=== PATIENT | male | born 1995 | race African-American/Black ===

== ENCOUNTER 2023-12-24 09:42 | Emergency (ER) | payer MEDICAID ==
[~2023-12-24] VITALS: Ht 180.3 cm; Wt 79.0 kg
[2023-12-24 09:44] VITALS: O2SAT 100
[2023-12-24 10:09] VITALS: BP 125/82; PULSE 66; RESP 17; TEMP 37.16964; O2SAT 100
[2023-12-24 10:21] LABS: BASOPHILS % 0.7 % (0.0-2.0); EOSINOPHILS % 1.3 % (0.0-5.0); HEMATOCRIT. 38.7 % (42.0-52.0); HEMOGLOBIN. 12.8 g/dL (14.0-18.0); LYMPHOCYTES % 24.4 % (20.0-50.0); MEAN CORPUSCULAR HEMOGLOBIN 29.7 pg (28.0-32.0); MEAN CORPUSCULAR HGB CONC 33.1 g/dL (31.0-37.0); MEAN CORPUSCULAR VOLUME 89.7 fL (80.0-94.0); MEAN PLATELET VOLUME 7.8 fl (7.4-10.4); MONOCYTES % 7.1 % (2.0-8.0); NEUTROPHILS % 66.5 % (40.0-76.0); PLATELET 279 x1000/uL (130-400); RED BLOOD CELL COUNT 4.31 mill/uL (4.7-6.1); RED CELL DISTRIBUTION WIDTH 14.6 % (11.6-14.6); WHITE BLOOD COUNT 5.6 x1000/uL (4.5-11.0)
[2023-12-24 10:33] LABS: CARBON DIOXIDE 29 mEq/L (21-32); CHLORIDE 106 mEq/L (98-107); POTASSIUM 3.8 mEq/L (3.5-5.1); SODIUM 141 mEq/L (136-145)
[2023-12-24 10:34] LABS: CALCIUM 9.1 mg/dL (8.7-10.4)
[2023-12-24 10:39] LABS: CREATININE 1.1 mg/dL (0.6-1.3); GLUCOSE 114 mg/dL (70-105); UREA NITROGEN BLOOD 13 mg/dL (9-23)
[2023-12-24 10:59] LABS: BETA HYDROXYBUTYRATE < 0.1 mMol/L (0.0-0.3); ETHANOL BLOOD < 10 mg/dL (<10); TROPONIN I HIGH SENSITIVITY < 4 ng/L (3.0-53)
[2023-12-24 11:09] LABS: PROTHROMBIN TIME 10.7 sec (9.6-11.0)
== END 2023-12-24 11:42 | disposition left against medical advice (07) ==
LOC: ER 10:48
DX: E11.649 Type 2 diabetes mellitus with hypoglycemia without coma (principal); R55 Syncope and collapse; F12.10 Cannabis abuse, uncomplicated
CPT/HCPCS: 36415; 80048; 80320; 82010; 82962; 83880; 84484; 85025; 93005; 99284; G0480